=== PATIENT | male | born 1965 | race Caucasian/White ===

== ENCOUNTER 2018-09-12 10:21 | Emergency (ER) | payer MEDICAID ==
[~2018-09-12] VITALS: Ht 170.2 cm; Wt 72.6 kg
[2018-09-12 10:31] VITALS: Ht 170.2 cm; Wt 72.6 kg
[2018-09-12 10:58] LABS: PLATELET COUNT 258 x10^3mcL (130-400); RED CELL DISTRIBUTION WIDTH 13.4 % (11.5-14.5)
[2018-09-12 11:05] LABS: BASOPHIL % 0 % (0-2)
[2018-09-12 11:13] LABS: microscopic required? NO
[2018-09-12 11:13] LABS: CALCIUM 8.3 mg/dL (8.5-10.1); CARBON DIOXIDE 29.9 mmol/L (21-32); CHLORIDE SERUM 101 mmol/L (98-107); CREATININE SERUM 0.8 mg/dL (0.7-1.3); GFR1 > 60 mL/min; GLUCOSE SERUM 151 mg/dL (74-106); SODIUM SERUM 137 mmol/L (136-145)
[2018-09-12 11:18] LABS: ALBUMIN 3.8 g/dL (3.4-5.0); ALKALINE PHOSPHATASE 61 U/L (46-116); ALT/SGPT 29 U/L (16-63); AST/SGOT 17 U/L (15-37); BILIRUBIN TOTAL 0.4 mg/dL (0.20-1.00); TOTAL PROTEIN, SERUM 7.1 g/dL (6.4-8.2)
[2018-09-12 11:27] LABS: urine erythrocyte NEGATIVE (NEGATIVE)
[2018-09-12 12:30] VITALS: BP 135/90
== END 2018-09-12 12:30 | disposition home or self-care (01) ==
LOC: ED 10:21
PROVIDERS: Emergency Medicine
DX: E11.649 Type 2 diabetes mellitus with hypoglycemia without coma (principal); I25.2 Old myocardial infarction
CPT/HCPCS: 82962; J7030; Q0092